=== PATIENT | male | born 1970 | race Caucasian/White ===

== ENCOUNTER 2025-03-14 22:24 | Emergency (ER) | payer BC ==
--- OUTSIDE RECORDS SUMMARY | 2025-03-14 22:31 | XMS REPORT | Continuity of Care Document ---
Author Name Unknown Address [address] [facility] [address] [place] [address] [facility] Address [address] [facility]. [address] [place] [address] Care Team Providers Care [employer]ic Name Role Phone Angela BARRETT, Cruzito Monroy Primary Care Physician MANUELA PARSONS Attending Clinician Unavailable MANUELA PARSONS Attending Clinician Unavailable Manuela Parsons PA-C Attending Clinician + RENE BRODY Attending Clinician UnavailRENE Baker Attending Clinician UnavailRene Baker MD Attending Clinician + [phone] Lucas Patricio MD Attending Clinician + Reen Brody MD Attending Clinician + [phone] Lucas Patricio MD Attending Clinician + EDDIE THOMAS Attending Clinician UnavailEddie Blakely MD Attending Clinician [phone] Justice Mack Attending Clinician + JUSTICE ERWIN Attending Clinician Unavailable Doctor Unassigned, [place] Attending Clinician U JOSE ALBERTO Guillen Attending Clinician Unavail able Jose Alberto Holm MD Attending Clinician [phone] LUCAS PATRICIO Attending Clinician Unavailable ELISEO CARY Attending Clinician Unavailable Nurse, [facility] Attending Clinician Un available Unknown, Attending Attending Clinician Unavailab nila UNKNOWN, ATTENDING Attending Clinician Unavailab NIGHAT Vasquez Attending Clinician Unavailable Nighat Sam MD Attending Clinician Therapy, [facility] Attending Clinician Unavailable Leonid Whalen MD Attending Clinician [phone] LEONID WHALEN Attending Clinician Unavailable JALEN RUFFIN Attending Clinician Unavailable Jalen Ruffin DO Attending Clinician [phone] BRADFORD LANDRUM Attending Clinician UnavailNATHALY Gomez Attending Clinician Unavailab nila Camargo MD, Td Attending Clinician [phone] EDDIE THOMAS Admitting Clinician Unavailab JOSE ALBERTO Pelaez Admitting Clinician Unavail able Payers Payer Name Policy Type Policy Number Effective Date Expirati on Date Source [facility] [id number] 2014 00:00:00 Problems Condition Name Condition Details Condition Category Status Onset Date Resolution Date Last Treatment Date Treating Clinician Comments Source Arthritis of both knees Arthritis of both knees Disease Active 06-04 00:00: 00 [facility] Lumbar disc disease with radiculopa thy Lumbar disc disease with radiculopa thy Disease Active 06-04 00:00: 00 [facility] Left-sided low back pain with left-sided sciatica Left-sided low back pain with left-sided sciatica Disease Active 05-05 00:00: 00 [facility] Left-sided low back pain with left-sided sciatica Left-sided low back pain with left-sided sciatica Disease Active 05-05 00:00: 00 [facility] Epilepsy Epilepsy Disease Active 2014-11 00:00: 00 [facility] Erectile dysfunctio n Erectile dysfunctio n Disease Active 2014-11 00:00: 00 [facility] Allergies, Adverse Reactions, Alerts Allergy Name Allergy Type Status Severity Reaction(s) Onset Date Inactive Date Treating Clinician Comments Source spironol actone Propensi ty to adverse reaction to drug Active 01-09 00:00: 00 [facility] Phenytoi n Sodium Extended Drug Allergy Active Anaphylaxis 2014-11 00:00: 00 Per patient [facility] Carbamaz epine Drug Allergy Active Anaphylaxis 2014-11 00:00: 00 Per patient [facility] PHENYTOI N SODIUM EXTENDED DRUG INGREDI Active Anaphylaxis 2014-11 00:00: 00 [facility] CARBAMAZ EPINE DRUG INGREDI Active Anaphylaxis 2014-11 00:00: 00 [facility] Social History Social Habit Start Date Stop Date Quantity Comments Source History SDOH Alcohol Frequency [facility] History SDOH Alcohol Std [facility] SDOH Alcohol Binge [facility] History of tobacco use Snuff User [facility] Alcoholic beverage intake 2024-11-24 00:00:00 2024-11-24 00:00:00 2 /d [facility] History of Social function 2024-10-12 00:00:00 2024-10-12 00:00:00 [facility] Cigarettes smoked current (pack per day) - Reported 2024-10-12 00:00:00 2024-10-12 00:00:00 [facility] Cigarette pack-years 2024-10-12 00:00:00 2024-10-12 00:00:00 [facility] Tobacco use and exposure 2024-10-12 00:00:00 2024-10-12 00:00:00 User of smokeless tobacco [facility] Alcohol intake 2023-05-01 00:00:00 2023-05-01 00:00:00 2 /d [facility] Exposure to SARS-CoV-2 (event) 2023-03-23 00:00:00 2023-04-02 14:06:00 Not sure [facility] Tobacco Comment 2022-06-04 00:00:00 2022-06-04 00:00:00 1 can daily [facility] Alcohol Comment 2019-02-09 00:00:00 2019-02-09 00:00:00 2 beers daily [facility] Sex assigned at 1970 00:00:00 1970 00:00:00 [facility] Smoking Status Start Date Stop Date Source Ex-smoker 2024-10-12 00:00:00 2024-10-12 00:00:00 [facility] Medications Ordered Medication Name Filled Medication Name Start Date Stop Date Current Medication? Ordering Clinician Indication Dosage Frequency Signature (SIG) Comments Components Source metoprolol tartrate 75 mg tablet - 00:00: 00 Yes 1mg [facility] anastrozole 1 mg tablet - 00:00: 00 Yes 1mg [facility] trazodone 50 mg tablet - 00:00: 00 Yes 1mg [facility] Cialis 20 mg tablet - 00:00: 00 Yes 1mg [facility] Depakote 500 mg tablet,marilin yed release 3- 00:00: 00 Yes 6mg [facility] metoprolol succinate ER 50 mg tablet,exte nded release 24 hr - 00:00: 00 Yes 1mg [facility] diclofenac sodium 75 mg tablet,marilin yed release 3- 00:00: 00 Yes 1mg [facility] Wellbutrin XL 150 mg 24 hr tablet, extended release - 00:00: 00 Yes 1mg [facility] bumetanide 1 mg tablet 3- 00:00: 00 Yes 1mg [facility] omeprazole 20 mg capsule,del ayed release 3- 00:00: 00 Yes 1mg [facility] Lyrica 75 mg capsule 3- 00:00: 00 Yes 1mg [facility] metoprolol succinate ER 25 mg tablet,exte nded release 24 hr 2-19 00:00: 00 Yes mg [facility] sodium hyaluronate (viscosup) (ORTHOVISC) injection 30 mg 11-24 16:45: 00 11-24 15:45 :00 No [id number] 30mg 30 mg, Intra-christi cular, ONCE, 1 dose, On Thu11/24/24 at 1045, Routine [facility] sodium hyaluronate (viscosup) (ORTHOVISC) injection 30 mg 11-17 18:00: 00 11-17 17:01 :00 No [id number] 30mg 30 mg, Intra-christi cular, ONCE, 1 dose, On Thu11/17/24 at 1200, Routine [facility] sodium hyaluronate (viscosup) (ORTHOVISC) injection 30 mg 2023-11 20:45: 00 10-12 19:56 :00 No [id number] 30mg 30 mg, Intra-christi cular, ONCE, 1 dose, On Thu10/12/24 at 1445, Routine [facility] metoprolol succinate XL 25 mg 24 hr tablet 2023-11 00:00: 00 Yes TAKE 1 TABLET BY MOUTH EVERY DAY FOR 30 DAYS [facility] sodium hyaluronate (viscosup) (ORTHOVISC) injection 30 mg 03-10 16:15: 00 03-10 15:17 :00 No [id number] 30mg 30 mg, Intra-chrsiti cular, ONCE, 1 dose, On Ashley 03/10/24 at 1115, Routine [facility] sodium hyaluronate (viscosup) (ORTHOVISC) injection 30 mg 03-03 18:45: 00 03-03 17:57 :00 No 30mg 30 mg, Intra-christi cular, ONCE, 1 dose, On Thu03/03/24 at 1345, Routine [facility] sodium hyaluronate (viscosup) (ORTHOVISC) injection 30 mg 02-24 16:30: 00 02-24 15:40 :00 No 30mg 30 mg, Intra-christi cular, ONCE, 1 dose, On Thu02/25/24 at 1130, Routine [facility] lisinopriL 20 mg tablet 12-28 00:00: 00 Yes [id number] TAKE 1 TABLET BY MOUTH EVERY MORNING NEED APPOINTMEN T [facility] lisinopriL 20 mg tablet 11-23 00:00: 00 Yes [id number] 20mg TAKE ONE TABLET BY MOUTH EVERY MORNING [facility] aspirin tablet 325 mg 05-01 14:26: 00 05-01 14:33 :00 No 325mg 325 mg, Oral, ONCE, 1 dose, On Thu05/01/23 at 0930, EVA [facility] dextroamphe tamine-amph etamine (ADDERALL) 10 mg tablet 05-01 09:46: 43 05-01 00:00 :00 No 10mg Take 10 mg by mouth 2 (two) times daily. Indication s: take 1/2 tab PO BID [facility] sodium hyaluronate (viscosup) (ORTHOVISC) injection 30 mg 04-09 20:15: 00 04-09 19:31 :00 No [id number] 9100 30mg [facility] sodium hyaluronate (viscosup) (ORTHOVISC) injection 30 mg 04-02 20:30: 00 04-02 19:42 :00 No [id number] 9109 30mg [facility] sodium hyaluronate (viscosup) (ORTHOVISC) injection 15 mg 03-26 19:30: 00 03-26 18:42 :00 No [id number] 15mg [facility] traZODone 50 mg tablet 03-25 00:00: 00 Yes at bedtime. [facility] levalbutero l (XOPENEX) nebulizer solution 1.25 mg 03-21 13:00: 00 Yes 1.25mg 1.25 mg, Inhalation , TID, First dose on 03/21/23 at 0800, Until Discontinu ed, Routine [facility] furosemide (LASIX) injection 40 mg 03-21 08:45: 00 03-21 09:06 :00 No 40mg 40 mg, IV Push, ONCE, 1 dose, On 03/21/23 at 0345, [facility] methylpredn isolone sod succ (SOLU-MEDRO L) injection 125 mg 03-21 08:45: 00 03-21 09:06 :00 No 125mg 125 mg, IV Piggyback, ONCE, 1 dose, On 03/21/23 at 0345, STAT [facility] divalproex ER (DEPAKOTE ER) 500 mg 24 hr tablet 03-21 05:54: 04 Yes 500mg Take 500 mg by mouth 2 (two) times daily. Indication s: takes 3 tab in morning and 2 in afternoon [facility] dextroamphe tamine-amph etamine (ADDERALL) 10 mg tablet 03-21 05:54: 04 Yes 10mg Take 10 mg by mouth 2 (two) times daily. Indication s: take 1/2 tab PO BID [facility] albuterol 90 mcg/actuati on inhaler 03-21 00:00: 00 Yes [id number] 2{puff} Inhale 2 Puffs every 4 (four) hours as needed for Wheezing or Shortness of Breath. [facility] azithromyci n 250 mg tablet 03-21 00:00: 00 03-27 04:59 :00 No [id number] 250mg Take 1 tablet by mouth SEE-INSTRU CTIONS for 5 days. Take 500 mg day 1, then 250 mg days 2 to 5. [facility] predniSONE 20 mg tablet 03-21 00:00: 00 03-24 04:59 :00 No [id number] 20mg Take 1 tablet by mouth in the morning and 1 tablet in the evening. Do all this for 2 days. [facility] dextroamphe tamine-amph etamine 30 mg tablet 03-18 00:00: 00 Yes 30mg Take 1 tablet by mouth in the morning and 1 tablet in the evening. [facility] cloNIDine 0.1 mg tablet 03-18 00:00: 00 Yes [facility] lisinopriL 20 mg tablet 4-20 00:00: 00 11-23 00:00 :00 No [id number] 20mg Take 1 tablet by mouth in the morning. [facility] doxycycline hyclate 100 mg tablet 8-22 00:00: 00 07-08 04:59 :00 No [id number] 100mg Take 1 tablet by mouth in the morning and 1 tablet in the evening. Do all this for 7 days. [facility] XCOPRI 50 mg Tab 7-20 00:00: 00 Yes [facility] DICLOFENAC 75 mg EC tablet 3-24 00:00: 00 06-04 00:00 :00 No [id number] TAKE ONE TABLET BY MOUTH TWICE A DAY WITH MEALS FOR 30 DAYS [facility] chlorphenir amine 4 mg tablet 01-14 00:00: 00 Yes [id number] 4mg Take 1 tablet by mouth every 6 (six) hours as needed for Allergies or Runny nose. [facility] calcium/mag nesium/zinc (CALCIUM-MA GNESUIUM-ZI NC) 333-133-5 mg Tab 01-14 00:00: 00 Yes [id number] 1{each} Take 1 Each by mouth daily. [facility] calcium/mag nesium/zinc (CALCIUM-MA GNESUIUM-ZI NC) 333-133-5 mg Tab 01-14 00:00: 00 Yes [id number] 1{each} Take 1 Each by mouth daily. [facility] benzonatate 100 mg capsule 01-14 00:00: 00 06-04 00:00 :00 No [id number] 100mg Take 1 capsule by mouth 3 (three) times daily as needed for Cough. [facility] nirmatrelvi r-ritonavir (PAXLOVID, EUA,) 300 mg (150 mg x 2)-100 mg tablet 08 00:00: 00 06-04 00:00 :00 No [id number] 3{tbl} Take 3 tablets by mouth 2 (two) times daily. [facility] DICLOFENAC 75 mg EC tablet 2020-11 2-14 00:00: 00 06-04 00:00 :00 No [id number] TAKE ONE TABLET BY MOUTH TWICE A DAY WITH MEALS FOR 30 DAYS [facility] Cane Yudy 4 00:00: 00 Yes [id number] Use as directed [facility] Cane Yudy 02-07 00:00: 00 Yes [id number] Use as directed [facility] diclofenac 75 mg EC tablet 1 00:00: 00 06-04 00:00 :00 No 75mg Take 1 tablet by mouth 2 (two) times daily with meals. [facility] diclofenac 75 mg EC tablet 8- 00:00: 00 06-04 00:00 :00 No [id number] 75mg Take 1 tablet by mouth 2 (two) times daily with meals. [facility] diclofenac 75 mg EC tablet 306 00:00: 00 Yes 75mg Take 1 tablet by mouth 2 (two) times daily with meals. [facility] methylPREDN ISolone 4 mg tablets 05-25 00:00: 00 06-04 00:00 :00 No [id number] Take by mouth SEE-INSTRU CTIONS. follow package directions [facility] dextroamphe tamine-amph etamine (ADDERALL) 10 mg tablet 05-20 13:13: 01 Yes 10mg Take 10 mg by mouth 2 (two) times daily. Indication s: take 1/2 tab PO BID [facility] divalproex ER (DEPAKOTE ER) 500 mg 24 hr tablet 05-20 13:13: 01 Yes 500mg Take 500 mg by mouth 2 (two) times daily. Indication s: takes 3 tab in morning and 2 in afternoon [facility] tadalafil 20 mg tablet 02-09 00:00: 00 Yes [id number] 20mg Take 1 tablet by mouth as needed for Erectile dysfunctio n. [facility] Immunizations Ordered Immunization Name Filled Immunization Name Date Status Comments Source Sotrovimab 2024-03-10 10:45:00 Completed [facility] TDAP 2024-03-10 10:45:00 Completed [facility] Sotrovimab 2024-03-03 13:00:00 Completed [facility] TDAP 2024-03-03 13:00:00 Completed [facility] Sotrovimab 2024-02-25 10:30:00 Completed [facility] TDAP 2024-02-25 10:30:00 Completed [facility] Sotrovimab 2024-01-11 00:00:00 Completed [facility] TDAP 2024-01-11 00:00:00 Completed [facility] Sotrovimab 2023-12-27 00:00:00 Completed [facility] TDAP 2023-12-27 00:00:00 Completed [facility] Sotrovimab 2023-11-22 00:00:00 Completed [facility] TDAP 2023-11-22 00:00:00 Completed [facility] TDAP 2022-03-13 00:00:00 Completed [facility] TDAP 2022-03-13 00:00:00 Completed [facility] TDAP 2022-03-13 00:00:00 Completed [facility] TDAP 2022-03-13 00:00:00 Completed [facility] TDAP 2022-03-13 00:00:00 Completed [facility] TDAP 2022-03-13 00:00:00 Completed [facility] TDAP 2022-03-13 00:00:00 Completed [facility] TDAP 2022-03-13 00:00:00 Completed [facility] TDAP 2022-03-13 00:00:00 Completed [facility] Sotrovimab 2022-01-16 00:00:00 Completed [facility] Sotrovimab 2022-01-16 00:00:00 Completed [facility] Sotrovimab 2022-01-16 00:00:00 Completed [facility] Sotrovimab 2022-01-16 00:00:00 Completed [facility] Sotrovimab 2022-01-16 00:00:00 Completed [facility] Sotrovimab 2022-01-16 00:00:00 Completed [facility] Sotrovimab 2022-01-16 00:00:00 Completed [facility] Sotrovimab 2022-01-16 00:00:00 Completed [facility] Sotrovimab 2022-01-16 00:00:00 Completed [facility] Sotrovimab 2022-01-16 00:00:00 Completed [facility] Sotroviscb 2022-01-16 00:00:00 Completed [facility] Sotrovimab 2022-01-16 00:00:00 Completed [facility] Sotrovimab 2022-01-16 00:00:00 Completed [facility] Sotrovimab 2022-01-16 00:00:00 Completed [facility] Sotrovimab 2022-01-16 00:00:00 Completed [facility] Vital Signs Vital Name Observation Time Observation Value Comments S ource Systolic blood pressure 2024-11-24 15:26:00 138 mm[Hg] [facility] Diastolic blood pressure 2024-11-24 15:26:00 88 mm[Hg] [facility] Heart rate 2024-11-24 15:26:00 107 /min [facility] Body height 2024-11-24 15:26:00 177.8 cm [facility] Body weight 2024-11-24 15:26:00 127.914 kg [facility] BMI 2024-11-24 15:26:00 40.46 kg/m2 [facility] Oxygen saturation in Arterial blood by Pulse oximetry 2024-11-24 15:26:00 94 /min [facility] Systolic blood pressure 2024-11-17 16:32:00 129 mm[Hg] [facility] Diastolic blood pressure 2024-11-17 16:32:00 87 mm[Hg] [facility] Heart rate 2024-11-17 16:32:00 94 /min [facility] Respiratory rate 2024-11-17 16:32:00 18 /min [facility] Body height 2024-11-17 16:32:00 177.8 cm [facility] Body weight 2024-11-17 16:32:00 130.182 kg [facility] BMI 2024-11-17 16:32:00 41.18 kg/m2 [facility] Oxygen saturation in Arterial blood by Pulse oximetry 2024-11-17 16:32:00 96 /min [facility] Systolic blood pressure 2024-10-12 19:55:00 124 mm[Hg] [facility] Diastolic blood pressure 2024-10-12 19:55:00 81 mm[Hg] [facility] Heart rate 2024-10-12 19:55:00 78 /min [facility] Body height 2024-10-12 19:55:00 177.8 cm [facility] Body weight 2024-10-12 19:55:00 128.413 kg [facility] BMI 2024-10-12 19:55:00 40.62 kg/m2 [facility] Oxygen saturation in Arterial blood by Pulse oximetry 2024-10-12 19:55:00 95 /min [facility] Systolic blood pressure 2024-03-10 15:16:00 149 mm[Hg] [facility] Diastolic blood pressure 2024-03-10 15:16:00 93 mm[Hg] [facility] Heart rate 2024-03-10 15:16:00 101 /min [facility] Body height 2024-03-10 15:16:00 177.8 cm [facility] Body weight 2024-03-10 15:16:00 133.811 kg [facility] BMI 2024-03-10 15:16:00 42.33 kg/m2 [facility] Oxygen saturation in Arterial blood by Pulse oximetry 2024-03-10 15:16:00 94 /min [facility] Body height 2024-03-03 17:47:00 177.8 cm [facility] Body weight 2024-03-03 17:47:00 132.949 kg [facility] BMI 2024-03-03 17:47:00 42.06 kg/m2 [facility] Systolic blood pressure 2024-02-25 15:34:00 147 mm[Hg] [facility] Diastolic blood pressure 2024-02-25 15:34:00 89 mm[Hg] [facility] Heart rate 2024-02-25 15:34:00 88 /min Un[facility] Body height 2024-02-25 15:34:00 177.8 cm [facility] Body weight 2024-02-25 15:34:00 131.679 kg [facility] BMI 2024-02-25 15:34:00 41.65 kg/m2 [facility] Oxygen saturation in Arterial blood by Pulse oximetry 2024-02-25 15:34:00 94 /min [facility] Systolic blood pressure 2023-05-01 19:00:00 101 mm[Hg] [facility] Diastolic blood pressure 2023-05-01 19:00:00 68 mm[Hg] [facility] Heart rate 2023-05-01 19:00:00 67 /min [facility] Respiratory rate 2023-05-01 19:00:00 13 /min [facility] Oxygen saturation in Arterial blood by Pulse oximetry 2023-05-01 19:00:00 92 /min [facility] Body temperature 2023-05-01 14:20:00 36.94 Mare [facility] Body height 2023-05-01 14:20:00 177.8 cm [facility] Body weight 2023-05-01 14:20:00 131.543 kg [facility] BMI 2023-05-01 14:20:00 41.61 kg/m2 [facility] Body height 2023-04-09 19:27:00 177.8 cm [facility] Body weight 2023-04-09 19:27:00 133.358 kg [facility] BMI 2023-04-09 19:27:00 42.18 kg/m2 [facility] Body height 2023-04-02 19:38:00 177.8 cm [facility] Body weight 2023-04-02 19:38:00 133.403 kg [facility] BMI 2023-04-02 19:38:00 42.20 kg/m2 [facility] Systolic blood pressure 2023-03-26 18:24:00 134 mm[Hg] [facility] Diastolic blood pressure 2023-03-26 18:24:00 87 mm[Hg] [facility] Heart rate 2023-03-26 18:24:00 72 /min Un[facility] Body height 2023-03-26 18:24:00 177.8 cm [facility] Body weight 2023-03-26 18:24:00 134.129 kg [facility] BMI 2023-03-26 18:24:00 42.43 kg/m2 [facility] Systolic blood pressure 2023-03-21 11:00:00 132 mm[Hg] [facility] Diastolic blood pressure 2023-03-21 11:00:00 82 mm[Hg] [facility] Heart rate 2023-03-21 11:00:00 86 /min [facility] Respiratory rate 2023-03-21 11:00:00 18 /min [facility] Oxygen saturation in Arterial blood by Pulse oximetry 2023-03-21 11:00:00 95 /min [facility] Body temperature 2023-03-21 08:25:00 37.39 Mare [facility] Body height 2023-03-21 08:25:00 177.8 cm [facility] Body weight 2023-03-21 08:25:00 138.347 kg [facility] BMI 2023-03-21 08:25:00 43.76 kg/m2 [facility] Systolic blood pressure 2023-02-26 17:58:00 144 mm[Hg] [facility] Diastolic blood pressure 2023-02-26 17:58:00 87 mm[Hg] [facility] Heart rate 2023-02-26 17:57:00 102 /min Un[facility] Body height 2023-02-26 17:57:00 177.8 cm [facility] Body weight 2023-02-26 17:57:00 135.671 kg [facility] BMI 2023-02-26 17:57:00 42.92 kg/m2 [facility] Oxygen saturation in Arterial blood by Pulse oximetry 2023-02-26 17:57:00 95 /min [facility] Systolic blood pressure 2023-02-26 14:01:00 124 mm[Hg] [facility] Diastolic blood pressure 2023-02-26 14:01:00 86 mm[Hg] [facility] Heart rate 2023-02-26 14:01:00 87 /min [facility] Body height 2023-02-26 14:01:00 177.8 cm [facility] Body weight 2023-02-26 14:01:00 135.217 kg [facility] BMI 2023-02-26 14:01:00 42.77 kg/m2 [facility] Systolic blood pressure 2022-07-09 20:03:00 137 mm[Hg] [facility] Diastolic blood pressure 2022-07-09 20:03:00 91 mm[Hg] [facility] Heart rate 2022-07-09 20:01:00 88 /min [facility] Body temperature 2022-07-09 20:01:00 37.06 Mare [facility] Respiratory rate 2022-07-09 20:01:00 18 /min [facility] Body height 2022-07-09 20:01:00 177.8 cm [facility] Body weight 2022-07-09 20:01:00 133.811 kg [facility] BMI 2022-07-09 20:01:00 42.33 kg/m2 [facility] Oxygen saturation in Arterial blood by Pulse oximetry 2022-07-09 20:01:00 96 /min [facility] Systolic blood pressure 2022-06-30 18:53:00 128 mm[Hg] [facility] Diastolic blood pressure 2022-06-30 18:53:00 88 mm[Hg] [facility] Heart rate 2022-06-30 18:53:00 97 /min [facility] Body temperature 2022-06-30 18:53:00 36.5 Mare [facility] Respiratory rate 2022-06-30 18:53:00 19 /min [facility] Body height 2022-06-30 18:53:00 177.8 cm [facility] Body weight 2022-06-30 18:53:00 133.403 kg [facility] BMI 2022-06-30 18:53:00 42.20 kg/m2 [facility] Oxygen saturation in Arterial blood by Pulse oximetry 2022-06-30 18:53:00 96 /min [facility] BP Systolic 2025-02-06 14:54:00 116 mm[Hg] Step hen F Carlos A BP Diastolic 2025-02-06 14:54:00 79 mm[Hg] Steven phen F Carlos A Weight Measured 2025-02-06 14:54:00 288.20 pounds Pancho F Carlos A Height Measured 2025-02-06 14:54:00 70.00 inches Pancho F Carlos A Body Temperature 2025-02-06 14:54:00 97.30 degrees Pancho F Carlos A Heart Rate 2025-02-06 14:54:00 91.00 /min Porsha en F Carlos A Respiratory Rate 2025-02-06 14:54:00 Pancho F Carlos A BP Systolic 2025-02-06 14:45:00 116 mm[Hg] Step hen F Carlos A BP Diastolic 2025-02-06 14:45:00 79 mm[Hg] Steven phen F Carlos A Weight Measured 2025-02-06 14:45:00 288.20 pounds Pancho F Carlos A Height Measured 2025-02-06 14:45:00 70.00 inches Pancho F Carlos A Body Temperature 2025-02-06 14:45:00 97.30 degrees Pancho F Carlos A Heart Rate 2025-02-06 14:45:00 89.00 /min Porsha en F Carlos A Respiratory Rate 2025-02-06 14:45:00 Pancho F Carlos A Heart Rate 2025-01-09 15:42:00 102.00 /min Afshin Strauss Respiratory Rate 2025-01-09 15:42:00 Pancho Strauss BP Systolic 2025-01-09 15:42:00 116 mm[Hg] Afshin Strauss BP Diastolic 2025-01-09 15:42:00 71 mm[Hg] Steven Strauss Weight Measured 2025-01-09 15:42:00 294.20 pounds Pancho Strauss Height Measured 2025-01-09 15:42:00 70.00 inches Pancho Strauss Body Temperature 2025-01-09 15:42:00 97.90 degrees Pancoh Strauss Procedures Procedure Date / Time Performed Performing Clinician Source AC ABG + LACTIC ACID 2023-05-01 18:38:00 Eddie Thomas [facility] COVID-19 (ID NOW RAPID TESTING) 2023-05-01 18:30:00 Eddie Thomas [facility] TROPONIN I 2023-05-01 16:47:[address] [facility] XR CHEST 1 VW 2023-05-01 14:54:00 Eddie Thomas [facility] TROPONIN I 2023-05-01 14:33:[address] [facility] COMP. METABOLIC PANEL (00092) 2023-05-01 14:33:00 Eddie Thomas [facility] CBC WITH DIFF 2023-05-01 14:33:00 Eddie Thomas [facility] PROTHROMBIN TIME / INR 2023-05-01 14:33:00 Eddie Thomas [facility] ACTIVATED PARTIAL THRMPLAS YO 2023-05-01 14:33:00 Eddie Thomas [facility] N-TERMINAL PRO-BNP 2023-05-01 14:33:00 Lizzie Thomas [facility] CONSENT/REFUSAL FOR DIAGNOSIS AND TREATMENT 2023-05-01 14:15:02 Doctor Unassigned, [place] [facility] EXTERNAL PROVIDER RECORDS 2023-04-03 05:01:00 Doctor Unassigned, [place] [facility] EKG-12 LEAD 2023-03-21 11:02:06 Jose Alberto Holm [facility] XR CHEST 2 VW 2023-03-21 09:09:01 Jose Alberto Holm [facility] TROPONIN I 2023-03-21 08:53:00 Jose Alberto Holm [facility] BASIC METABOLIC PANEL (NA, K, CL, CO2, GLUCOSE, BUN, CREATININE, CA) 2023-03-21 08:53:00 Jose Alberto Holm [facility] RAPID STREP SCREEN FOR GROUP A 2023-03-21 08:53:00 Jose Alberto Holm [facility] N-TERMINAL PRO-BNP 2023-03-21 08:53:00 Jose Alberto Holm [facility] COVID-19 (ID NOW RAPID TESTING) 2023-03-21 08:53:00 Jose Alberto Holm [facility] NOTICE OF PRIVACY PRACTICES 2023-03-21 08:18:07 Doctor Unassigned, [place] [facility] CONSENT/REFUSAL FOR DIAGNOSIS AND TREATMENT 2023-03-21 08:17:38 Doctor Unassigned, [place] [facility] AUTHORIZATION FOR RELEASE OF PHI 2022-05-15 05:01:00 Doctor Unassigned, [place] [facility] Encounters Start Date/Time End Date/Time Encounter Type Admission Type Attending [facility] Care Facility Care Department Encounter ID Source 2023-10-12 14:04:00 Outpatient [facility] [id number] [facility] 2022-02-18 09:05:02 Outpatient [facility] [id number] [facility] 2025-02-06 14:44:07 2025-02-06 14:44:07 Outpatient [facility] [id number] Pancho F Carlos A 2025-02-06 00:00:00 2025-02-06 00:00:00 Outpatient Visit SFA SFA [id number] Pancho Strauss 2025-01-09 15:42:17 2025-01-09 15:42:17 Outpatient SFA SFA [id number] Pancho Strauss 2025-01-09 00:00:00 2025-01-09 00:00:00 Outpatient Visit [facility] [id number] [facility] Strauss 2024-11-24 09:30:00 2024-11-24 09:43:30 Outpatient R MANUELA PARSONS SELENA [facility] [id number] [facility] 2024-11-24 09:30:00 2024-11-24 09:43:30 Office Visit Jaqueline [facility] 1.2.840.114 350.1.13.10 4.2.7.2.686 [id number] [facility] 2024-11-17 10:30:00 2024-11-17 10:55:52 Outpatient R MANUELA PARSONS SELENA [facility] [id number] [facility] 2024-11-17 10:30:00 2024-11-17 10:55:52 [facility]Yefri [facility] .2.840.114 350.1.13.10 4.2.7.2.686 [id number] [facility] 2024-11-08 10:00:00 2024-11-08 10:00:00 Outpatient R MANUELA PARSONS SELENA [facility] [id number] [facility] 2024-10-19 14:30:00 2024-10-19 14:30:00 Outpatient R MANUELA PARSONS SELENA [facility] [id number] [facility] 2024-10-12 14:00:00 2024-10-12 14:11:55 Outpatient R RENE BRODY CRAIG [facility] [id number] [facility] 2024-10-12 14:00:00 2024-10-12 14:11:55 Office Visit Rene Bro[facility]Yefri [facility] 1.2840.114 350.1.13.10 4.2.7.2.686 [id number] [facility] 2024-10-11 00:00:00 2024-10-11 10:15:58 Telephone Lucas Patricio [facility] 1.84.114 350.1.13.10 4.2.7.2.686 [id number] [facility] 2024-09-28 00:00:00 2024-09-29 13:33:59 Telephone Rene Brody [facility] 1.840.114 350.1.13.10 4.2.7.2.686 [id number] [facility] 2024-09-22 11:15:00 2024-09-22 11:15:00 Outpatient R RENE BRODY CRAIG [facility] [id number] [facility] 2024-09-21 00:00:00 2024-09-21 15:41:04 [facility] 1.840.114 350.1.13.10 4.2.7.2.686 [id number] [facility] 2024-08-30 09:45:00 2024-08-30 09:45:00 Outpatient R RENE BRODY CRAIG [facility] [id number] [facility] 2024-08-23 00:00:00 2024-08-24 09:44:17 Telephone Rene Brody [facility] 1.2840.114 350.1.13.10 4.2.7.2.686 [id number] [facility] 2024-03-10 10:45:00 2024-03-10 13:36:59 Outpatient R RENE BRODY CRAIG [facility] [id number] [facility] 2024-03-10 10:45:00 2024-03-10 13:36:59 Office [facility] 1.840.114 350.1.13.10 4.2.7.2.686 [id number] [facility] 2024-03-03 13:00:00 2024-03-03 13:10:23 Outpatient R RENE BRODY CRAIG [facility] [id number] [facility] 2024-03-03 13:00:00 2024-03-03 13:10:23 Office Visit Rene Brody [facility] 1.84.114 350.1.13.10 4.2.7.2.686 [id number] [facility] 2024-02-25 10:30:00 2024-02-25 11:52:42 Outpatient R RENE BRODY CRAIG [facility] [id number] [facility] 2024-02-25 10:30:00 2024-02-25 11:52:42 Office Visit [facility] 1.84.114 350.1.13.10 4.2.7.2.686 [id number] [facility] 2024-01-11 00:00:00 2024-01-11 00:00:00 Lucas Morgan [facility] 1.84.114 350.1.13.10 4.2.7.2.686 [id number] [facility] 2023-12-27 00:00:00 2023-12-27 00:00:00 Reftravis Patricio [facility]Yefri [facility] OFFICE BUILDING 1.84.114 350.1.13.10 4.2.7.2.686 [id number] [facility] 2023-11-22 00:00:00 2023-11-22 00:00:00 Refill Aristeo [facility] 1.114 350.1.13.10 4.2.7.2.686 [id number] [id number] [facility] 2023-05-01 09:21:00 2023-05-01 15:00:00 Emergency [facility] [id number] [facility] 2023-05-01 09:21:00 2023-05-01 15:00:00 Emergency [facility] 1..114 350.1.13.10 4.2.7.2.686 [id number] [facility] 2023-04-09 14:30:00 2023-04-09 14:45:00 Office Visit Justice Erwin [facility] 1.84.114 350.1.13.10 4.2.7.2.686 [id number] [facility] 2023-04-09 14:30:00 2023-04-09 14:30:00 Outpatient R JUSTICE ERWIN [facility] [id number] [facility] 2023-04-03 00:00:00 2023-04-03 00:00:00 Orders Only Doctor Unassigned, [place] [facility] 1..114 350.1.13.10 4.2.7.2.686 [id number] [facility] 2023-04-02 14:30:00 2023-04-02 16:40:05 Outpatient R YAIMA JUSTICE [facility] [id number] [facility] 2023-04-02 14:30:00 2023-04-02 16:40:05 [facility] 1..840.114 350.1.13.10 4.2.7.2.686 [id number] [facility] 2023-03-26 13:15:00 2023-03-26 13:51:42 Outpatient R YAIMA JUSTICE [facility] [id number] [facility] 2023-03-26 13:15:00 2023-03-26 13:51:42 Office [facility] 1..840.114 350.1.13.10 4.2.7.2.686 [id number] [facility] 2023-03-21 03:31:00 2023-03-21 06:35:00 Emergency X JOSE ALBERTO HOLM [facility] [id number] [facility] 2023-03-21 03:31:00 2023-03-21 06:35:00 Emergency Jose Alberto Holm [facility] 1..840.114 350.1.13.10 4.2.7.2.686 [id number] [facility] 2023-03-18 00:00:00 2023-03-18 00:00:00 Telephone [facility] 1..840.114 350.1.13.10 4.2.7.2.686 [id number] [facility] 2023-02-26 13:45:00 2023-02-26 14:00:00 Office Visit Lucas Patricio [facility] 1..840.114 350.1.13.10 4.2.7.2.686 [id number] [facility] 2023-02-26 08:45:00 2023-02-26 09:37:02 Outpatient R JUSTICE ERWIN [facility] [id number] [facility] 2023-02-26 08:45:00 2023-02-26 09:00:00 Office Visit Justice Erwin [facility] 1..840.114 350.1.13.10 4.2.7.2.686 [id number] [facility] 2022-07-09 15:00:00 2022-07-09 15:29:13 Outpatient R ELISEO CARY [facility] [id number] [facility] 2022-07-09 15:00:00 2022-07-09 15:20:00 Nurse Visit Nurse, Flako [facility] Unknown, Attending [facility] 1..840.114 350.1.13.10 4.2.7.2.686 [id number] [facility] 2022-07-09 15:00:00 2022-07-09 15:00:00 Outpatient R UNKNOWN, ATTENDING [facility] [id number] [facility] 2022-06-30 14:00:00 2022-06-30 14:31:57 Outpatient R FLACO NIGHAT [facility] [id number] [facility] 2022-06-30 14:00:00 2022-06-30 14:31:57 Urgent Care Flaco Nig[facility] 1..840.114 350.1.13.10 4.2.7.2.686 [id number] [facility] 2022-06-23 00:00:00 2022-06-23 00:00:00 Telephone Lucas Patricio [facility] 1.84.114 350.1.13.10 4.2.7.2.686 [id number] [facility] 2022-06-04 09:00:00 2022-06-04 09:29:54 Office Visit Lucas Patricio [facility] 1.84114 350.1.13.10 4.2.7.2.686 [id number] [facility] 2022-06-04 09:00:00 2022-06-04 09:29:54 Outpatient R LUCAS PATRICIO [facility] [id number] [facility] 2022-06-04 09:00:00 2022-06-04 09:00:00 Outpatient R LUCAS PATRICIO [facility] [id number] [facility] 2022-06-04 00:00:00 2022-06-04 00:00:00 Telephone [facility] 1.84114 350.1.13.10 4.2.7.2.686 [id number] [facility] 2022-05-15 00:00:00 2022-05-15 00:00:00 Telephone Lucas Patricio [facility] 1.84.114 350.1.13.10 4.2.7.2.686 [id number] [facility] 2022-05-15 00:00:00 2022-05-15 00:00:00 Telephone Lucas Patricio [facility] 1.84.114 350.1.13.10 4.2.7.2.686 [id number] [facility] 2022-05-15 00:00:00 2022-05-15 00:00:00 Orders Only Doctor Unassigned, [place] [facility] 1.2.840.114 350.1.13.10 4.2.7.2.686 [id number] [facility] 2022-02-18 00:00:00 2022-02-18 00:00:00 Orders Only Doctor Unassigned, [place] [facility] 1.2840.114 350.1.13.10 4.2.7.2.686 [id number] [facility] 2022-01-30 00:00:00 2022-01-30 00:00:00 Justice Dia [facility] 1.2840.114 350.1.13.10 4.2.7.2.686 [id number] [facility] 2022-01-16 16:00:00 2022-01-16 17:00:00 Nurse Visit Therapy, Adc Covid Leonid Kat [facility] 1.2840.114 350.1.13.10 4.2.7.2.686 [id number] [facility] 2022-01-16 16:00:00 2022-01-16 16:00:00 Outpatient LEONID ELDRIDGE [facility] [id number] [facility] 2022-01-14 12:54:00 2022-01-14 18:42:00 Emergency X JALEN RUFFIN [facility] ERT [id number] [facility] 2022-01-14 12:54:00 2022-01-14 18:42:00 Emergency Jalen Ruffin [facility] 1.2840.114 350.1.13.10 4.2.7.2.686 [id number] [facility] 2022-01-14 12:00:00 2022-01-14 12:22:36 Outpatient R BRADFORD LANDRUM [facility] [id number] [facility] 2022-01-12 20:00:00 2022-01-12 20:34:36 Outpatient R NATHALY MARCANO [facility] [id number] [facility] 2021-10-16 00:00:00 2021-10-16 00:00:00 Justice Dia [facility] SPECIAL[facility] 1.2840.114 350.1.13.10 4.2.7.2.686 [id number] [facility] 2021-10-08 00:00:00 2021-10-08 00:00:00 Orders Only Doctor Unassigned, [place] [facility] 1.2840.114 350.1.13.10 4.2.7.2.686 [id number] [facility] 2021-09-24 00:00:00 2021-09-24 00:00:00 [facility] 1.2.84.114 350.1.13.10 4.2.7.2.686 [id number] [facility] 2021-09-24 00:00:00 2021-09-24 00:00:00 Telephone Aristeo [facility] 1.2840.114 350.1.13.10 4.2.7.2.686 [id number] [facility] 2021-09-24 00:00:00 2021-09-24 00:00:00 Orders Only Doctor Unassigned, [place] [facility] 1.2840.114 350.1.13.10 4.2.7.2.686 [id number] [facility] 2021-08-12 15:13:23 2021-08-12 15:43:37 Office [facility] Medical Office Building 1.114 350.1.13.10 4.2.7.2.686 [id number] [facility] 2021-08-12 15:15:00 2021-08-12 15:15:00 Outpatient R RENE BRODY [facility] [id number] [facility] 2021-08-05 15:16:14 2021-08-05 16:14:11 Office Visit Justice Erwin [facility] Jesus?[facility] Medical Office Building 1.114 350.1.13.10 4.2.7.2.686 [id number] [facility] 2021-08-05 15:15:00 2021-08-05 15:15:00 Outpatient R RENE BRODY [facility] [id number] [facility] 2021-07-29 15:19:40 2021-07-29 15:51:55 Office Visit [facility] Medical Office Building 1.114 350.1.13.10 4.2.7.2.686 [id number] [facility] 2021-07-29 15:19:40 2021-07-29 15:51:55 Office Visit Justice [facility]win [facility] Medical Office Building 1.114 350.1.13.10 4.2.7.2.686 [id number] [facility] 2021-07-29 15:19:40 2021-07-29 15:51:55 Office Visit Justice [facility] Medical Office Building 1.114 350.1.13.10 4.2.7.2.686 [id number] [facility] 2021-07-29 15:15:00 2021-07-29 15:15:00 Outpatient R RENE BRODY [facility] [id number] [facility] 2021-07-25 10:19:13 2021-07-25 10:45:36 Office Visit BrodyRene [facility] Medical Office Building 1.2.840.114 350.1.13.10 4.2.7.2.686 [id number] [facility] 2021-07-25 10:30:00 2021-07-25 10:30:00 Outpatient R RENE BRODY [facility] [id number] [facility] 2021-07-19 10:20:38 2021-07-19 10:43:06 Office [facility] Medical Office Building 1.2.840.114 350.1.13.10 4.2.7.2.686 [id number] [facility] 2021-07-19 10:30:00 2021-07-19 10:30:00 Outpatient R RENE BRODY [facility] [id number] [facility] 2021-07-11 10:30:00 2021-07-11 10:30:00 Outpatient R MARY GRACE RENE [facility] [id number] [facility] 2021-07-11 09:52:25 2021-07-11 10:12:32 Office Visit Justice Erwin [facility] Medical Office Building 1.2.840.114 350.1.13.10 4.2.7.2.686 [id number] [facility] 2021-07-05 00:00:00 2021-07-05 00:00:00 Orders Only Doctor Unassigned, [place] [facility] 1.2.840.114 350.1.13.10 4.2.7.2.686 [id number] [facility] 2021-07-01 00:00:00 2021-07-01 00:00:00 Telephone Gavino Brodyig Talisha [facility] 1.2.840.114 350.1.13.10 4.2.7.2.686 [id number] [facility] 2021-06-20 07:39:53 2021-06-20 23:59:00 Hospital Encounter Rene Brody [facility] 1.2.840.114 350.1.13.10 4.2.7.2.686 [id number] [facility] 2021-06-20 09:00:00 2021-06-20 09:00:00 Outpatient R RENE BRODY [facility] [place] [id number] [facility] 2021-06-20 08:21:40 2021-06-20 08:53:09 Office Visit Rene Brody [facility] 1.2.840.114 350.1.13.10 4.2.7.2.686 [id number] [facility] 2021-06-19 00:00:00 2021-06-19 00:00:00 Telephone Rene Brody [facility] 1.2.840.114 350.1.13.10 4.2.7.2.686 [id number] [facility] 2021-06-12 00:00:00 2021-06-12 00:00:00 Telephone Rene Brody [facility] 1.2.840.114 350.1.13.10 4.2.7.2.686 [id number] [facility] 2021-05-09 09:15:00 2021-05-09 09:15:00 Outpatient R RENE BRODY [facility] [place] [id number] [facility] 2021-02-07 08:00:00 2021-02-07 23:59:00 Hospital Encounter Mary Grace Rene Talisha [facility] 1.2.840.114 350.1.13.10 4.2.7.2.686 [id number] [facility] 2021-02-07 08:28:12 2021-02-07 08:43:12 Office Visit [facility] 1.2.840.114 350.1.13.10 4.2.7.2.686 [id number] [facility] 2021-02-07 08:30:00 2021-02-07 08:30:00 Outpatient R JUSTICE ERWIN [facility] [place] [id number] [facility] 2021-02-07 00:00:00 2021-02-07 00:00:00 Orders Only Doctor Unassigned, [place] [facility] 1.2.840.114 350.1.13.10 4.2.7.2.686 [id number] [id number] [facility] 2021-02-06 00:00:00 2021-02-06 00:00:00 Telephone Rene Brody Talisha [facility] 1.2.840.114 350.1.13.10 4.2.7.2.686 [id number] [facility] 2021-02-05 00:00:00 2021-02-05 00:00:00 Telephone Rene Brody Talisha [facility] 1.2.840.114 350.1.13.10 4.2.7.2.686 [id number] [facility] 2020-12-03 00:00:00 2020-12-03 00:00:00 Telephone Justice Erwin [facility] 1.2.840.114 350.1.13.10 4.2.7.2.686 [id number] [facility] 2020-07-29 00:00:00 2020-07-29 00:00:00 Orders Only Doctor Unassigned, [place] [facility] 1.2.840.114 350.1.13.10 4.2.7.2.686 [id number] [id number] [facility] 2020-06-07 00:00:00 2020-06-07 00:00:00 Refill Rene Brody [facility] 1.2.840.114 350.1.13.10 4.2.7.2.686 [id number] [facility] 2020-03-14 00:00:00 2020-03-14 00:00:00 Orders Only Doctor Unassigned, [place] [facility] 1.2840.114 350.1.13.10 4.2.7.2.686 [id number] [id number] [facility] 2020 00:00:00 2020 00:00:00 Telephone Patricio Lucas [facility] 1.2840.114 350.1.13.10 4.2.7.2.686 [id number] [facility] 2020-02-23 00:00:00 2020-02-23 00:00:00 Orders Only Doctor Unassigned, [place] [facility] 1.2.840.114 350.1.13.10 4.2.7.2.686 [id number] [id number] [facility] 2020-02-17 00:00:00 2020-02-17 00:00:00 Telephone Aristeo [facility] 1.2840.114 350.1.13.10 4.2.7.2.686 [id number] [facility] 2020-02-13 00:00:00 2020-02-13 00:00:00 Orders Only Doctor Unassigned, [place] [facility] 1.2840.114 350.1.13.10 4.2.7.2.686 [id number] [id number] [facility] 2020-02-02 00:00:00 2020-02-02 00:00:00 Telephone PatricioLucas sanders [facility] 1.2840.114 350.1.13.10 4.2.7.2.686 [id number] [facility] 2020-01-12 00:00:00 2020-01-12 00:00:00 Telephone Rene Brody [facility] 1.284.114 350.1.13.10 4.2.7.2.686 [id number] [facility] 2019-06-10 13:33:41 2019-06-10 13:48:41 Office Visit Agustina Camargohi [facility] 1.2840.114 350.1.13.10 4.2.7.2.686 [id number] [facility] Results Test Description Test Time Test Comments Results Result Co mments Source [facility] [id number] 15:18:21* Test Item Value Reference Range Interpretation Comme nts TROPONIN I (test code = 9905443476) 0.000 ng/mL <=0.034 LUPE (test code = LUPE) Reference (Normal) Range (defined by the 99th percentile reference limit): <= 0.034 ng/mL Note: Cardiac troponin begins to rise 3-4 hours after the onset of ischemia. Repeat in 4-6 hours if the sample was drawn within 3-4 hours of the onset of the symptom and found normal. Diagnosis of myocardial injury is made with acute changes in cTn concentrations with at least one serial sample above the 99th percentile upper reference limit (URL), taken together with the patient's clinical presentation. Biotin has been reported to cause a negative bias, interpret results relative to patient's use of biotin. Lab Interpretation (test code = 39656-6) Normal [facility] NorthwestN-TERMINAL [id number] 15:16:28* Test Item Value Reference Range Interpretation Comme nts NT-proBNP (test code = 8833824846) <=125 LUPE (test code = LUPE) Biotin has been reported to cause a negative bias, interpret results relative to patient's use of biotin. Lab Interpretation (test code = 23885-1) Normal [facility] NorthwestACTIVATED PARTIAL THRMPLAS [id number] 15:10:18* Test Item Value Reference Range Interpretation Comme nts APTT Patient (test code = 3173-2) 23 See_Comment [Automated message] The system which generated this result transmitted reference range: 23 - 38 Seconds. The reference range was not used to interpret this result as normal/abnormal. LUPE (test code = LUPE) The [facility] patient population mean normal value for aPTT is 30 seconds. Lab Interpretation (test code = 39052-7) Normal [facility] NorthwestPROTHROMBIN TIME / [id number] 15:08:17* Test Item Value Reference Range Interpretation Comme nts PROTIME PATIENT (test code = 5964-2) 12.2 See_Comment [Automated messa ge] The system which generated this result transmitted reference range: 12.0 - 14.7 Seconds. The reference range was not used to interpret this result as normal/abnormal. INR (test code = 6301-6) 0.9 Normal INR <1.1; Warfarin Therapeutic range 2.0 to 3.0 or 2.5 to 3.5, depending upon the indications. Lab Interpretation (test code = 44463-9) Normal [facility] NorthwestCOMP. METABOLIC PANEL (26516)2023-05-01 15:06:36* Test Item Value Reference Range Interpretation Comme nts NA (test code = 2481700072) 137 mmol/L 135-145 K (test code = 5463169871) 5.0 mmol/L 3.5-5.0 CL (test code = 8836853527) 103 mmol/L 98-108 CO2 TOTAL (test code = 6049348948) 25 mmol/L 23-31 AGAP (test code = 3046633854) 9 2-16 BUN (test code = 0801982109) 20 mg/dL 7-23 GLUCOSE (test code = 8800919877) 101 mg/dL 70-110 CREATININE (test code = 4534559100) 0.89 mg/dL 0.60-1.25 TOTAL BILI (test code = 1550051153) 1.0 mg/dL 0.1-1.1 CALCIUM (test code = 5038517523) 9.3 mg/dL 8.6-10.6 T PROTEIN (test code = 4231159304) 7.0 g/dL 6.3-8.2 ALBUMIN (test code = 4318414150) 4.0 g/dL 3.5-5.0 ALK PHOS (test code = 8215604151) 92 U/L 34-122 ALTv (test code = 1742-6) 45 U/L 5-50 AST(SGOT) (test code = 4532676277) 29 U/L 13-40 eGFR (test code = 6096852343) 90.1 mL/min/1.73m2 LUPE (test code = LUPE) Association of Glomerular Filtration Rate (GFR) and Staging of Kidney Disease* + + +- +| GFR (mL/min/1.73 m2) ?| With Kidney Damage ?| ?Without Kidney Damage+ ------+ ----+ ------+| ?>90 ?| ?Stage one ?| ? Normal ?+ -+ + -+| ?60-89 ?| ?Stage two ?| ? Decreased GFR ? + + +- +| ?30-59 ?| ?Stage three ?| ? Stage three ? + + +- +| ?15-29 ?| ?Stage four ? | ? Stage four ?+ -+ + -+| ?<15 (or dialysis) ? ?| ?Stage five ? | ? Stage five ?+ -+ + -+ *Each stage assumes the associated GFR level has been in effect for at least three months. ?Stages 1 to 5, with or without kidney disease, indicate chronic kidney disease. Notes: Determination of stages one and two (with eGFR >59mL/min/1.73 m2) requires estimation of kidney damage for at least three months as defined by structural or functional abnormalities of the kidney, manifested by either:Pathological abnormalities or Markers of kidney damage (including abnormalities in the composition of the blood or urine or abnormalities in imaging tests). [facility] WITH [id number] 14:59:16* Test Item Value Reference Range Interpretation Comme nts WBC (test code = 6690-2) 7.98 See_Comment [Automated [employer] ge] The system which generated this result transmitted reference range: 4.20 - 10.70 10*3/?L. The reference range was not used to interpret this result as normal/abnormal. RBC (test code = 789-8) 6.23 See_Comment H [Automated [employer] ge] The system which generated this result transmitted reference range: 4.26 - 5.52 10*6/?L. The reference range was not used to interpret this result as normal/abnormal. HGB (test code = 718-7) 17.5 g/dL 12.2-16.4 H HCT (test code = 4544-3) 53.1 % 38.4-49.3 H MCV (test code = 787-2) 85.2 fL 81.7-95.6 MCH (test code = 785-6) 28.1 pg 26.1-32.7 MCHC (test code = 786-4) 33.0 g/dL 31.2-35.0 RDW-SD (test code = 16622-9) 42.9 fL 38.5-51.6 RDW-CV (test code = 788-0) 14.1 % 12.1-15.4 PLT (test code = 777-3) 231 See_Comment [Automated [employer]] The system which generated this result transmitted reference range: 150 - 328 10*3/?L. The reference range was not used to interpret this result as normal/abnormal. MPV (test code = 97767-2) 10.8 fL 9.8-13.0 NRBC/100 WBC (test code = 5875290698) 0.0 See_Comment [Automated [employer]] The system which generated this result transmitted reference range: 0.0 - 10.0 /100 WBCs. The reference range was not used to interpret this result as normal/abnormal. NRBC x10^3 (test code = 8762506530) See_Comment [Automated [employer] ge] The system which generated this result transmitted reference range: 10*3/?L. The reference range was not used to interpret this result as normal/abnormal. GRAN MAT (NEUT) % (test code = 770-8) 47.1 % IMM GRAN % (test code = 8609055773) 0.40 % LYMPH % (test code = 736-9) 39.2 % MONO % (test code = 5905-5) 8.9 % EOS % (test code = 713-8) 3.9 % BASO % (test code = 706-2) 0.5 % GRAN MAT x10^3(ANC) (test code = 5703645646) 3.76 10*3/uL 1.99-6.95 IMM GRAN x10^3 (test code = 7064734997) 0.03 10*3/uL 0.00-0.06 LYMPH x10^3 (test code = 731-0) 3.13 10*3/uL 1.09-3.23 MONO x10^3 (test code = 742-7) 0.71 10*3/uL 0.36-1.02 EOS x10^3 (test code = 711-2) 0.31 10*3/uL 0.06-0.53 BASO x10^3 (test code = 704-7) 0.04 10*3/uL 0.01-0.09 Lab Interpretation (test code = 35234-7) Abnormal [facility] NorthwestTrwilli[facility] centernin [id number] 09:39:56* Test Item Value Reference Range Interpretation Comme nts TROPONIN I (test code = 3105140561) 0.002 ng/mL <=0.034 LUPE (test code = LUPE) Reference (Normal) Range (defined by the 99th percentile reference limit): <= 0.034 ng/mL Note: Cardiac troponin begins to rise 3-4 hours after the onset of ischemia. Repeat in 4-6 hours if the sample was drawn within 3-4 hours of the onset of the symptom and found normal. Diagnosis of myocardial injury is made with acute changes in cTn concentrations with at least one serial sample above the 99th percentile upper reference limit (URL), taken together with the patient's clinical presentation. Biotin has been reported to cause a negative bias, interpret results relative to patient's use of biotin. Lab Interpretation (test code = 62314-6) Normal [facility] NorthwestN-TERMINAL [id number] 09:35:13* Test Item Value Reference Range Interpretation Comme nts NT-proBNP (test code = 2015356571) 65 pg/mL <=125 LUPE (test code = LUPE) Biotin has been reported to cause a negative bias, interpret results relative to patient's use of biotin. Lab Interpretation (test code = 72110-9) Normal [facility] Metabolic Panel (NA, K, CL, CO2, GLUCOSE, BUN, CREATININE, CA)2023-03-21 09:27:13* Test Item Value Reference Range Interpretation Comme nts NA (test code = 4972536881) 138 mmol/L 135-145 K (test code = 0188867925) 4.5 mmol/L 3.5-5.0 CL (test code = 8408866228) 103 mmol/L 98-108 CO2 TOTAL (test code = 6571094721) 24 mmol/L 23-31 AGAP (test code = 5416532212) 11 2-16 BUN (test code = 1437678224) 21 mg/dL 7-23 GLUCOSE (test code = 3948780997) 112 mg/dL 70-110 H CREATININE (test code = 8951510157) 0.83 mg/dL 0.60-1.25 CALCIUM (test code = 9375953293) 9.3 mg/dL 8.6-10.6 eGFR (test code = 1096914556) 97.7 mL/min/1.73m2 LUPE (test code = LUPE) Association of Glomerular Filtration Rate (GFR) and Staging of Kidney Disease* + --+ --+ ------+| GFR (mL/min/1.73 m2) ?| With Kidney Damage ?| ?Without Kidney Damage+ --------+ --------+ +| ?>90 ?| ?Stage one ?| ? Normal ?+ ---+ ---+ -------+| ?60-89 ?| ?Stage two ?| ? Decreased GFR ? + --+ --+ ------+| ?30-59 ?| ?Stage three ?| ? Stage three ? + --+ --+ ------+| ?15-29 ?| ?Stage four ? | ? Stage four ?+ ---+ ---+ -------+| ?<15 (or dialysis) ? ?| ?Stage five ? | ? Stage five ?+ ---+ ---+ -------+ *Each stage assumes the associated GFR level has been in effect for at least three months. ?Stages 1 to 5, with or without kidney disease, indicate chronic kidney disease. Notes: Determination of stages one and two (with eGFR >59mL/min/1.73 m2) requires estimation of kidney damage for at least three months as defined by structural or functional abnormalities of the kidney, manifested by either:Pathological abnormalities or Markers of kidney damage (including abnormalities in the composition of the blood or urine or abnormalities in imaging tests). Lab Interpretation (test code = 77356-8) Abnormal [facility] Notes Date/Time Note Provider Source Pancho Brooks [facility]2025-03-03 00:00:00 [facility] 10[facility]13:51 Referral placed, pt notified [facility]2024-12-03 09:38:45 Patient is schedule to see tomorrow 10/12 for Orthovisc INJ. Pt is required to obtain a referral from PCP. DLER [facility]University [facility] [id number] 16:55:31 [employer] send approval for Orthovisc for (1) year placed in provider box and uploaded to chart DLER [facility]Bar[facility] [id number] 15:38:08 Per Kari PRE-DETERMINATION requires for Orthovisc. Submitted form and medical support today 09/21/24. Advice Evangelina Miller to cancel patient appointment until we received approval form insurance. ARCH PHYSICIAN Sarika ChatorobynG[facility] [employer] [id number] 09:43:43 Patient has been scheduled for 08/30/24 Ana [facility]erG[facility]UP [facility] Spreadtr[employer] [id number] 17:07:16 Derek Weaver is a 54 year old male Pt is calling to schedule a procedure for bilateral knee injection please call him @[phone] (home) Shweta SrinivasanUniversity Hospitals E[facility] Center"
[2025-03-14] MEDS ORDERED: ONDANSETRON 4 MG/2 ML VIAL ONE (22:54)
[2025-03-14] MEDS ORDERED: NA CHLORIDE 0.9% 1,000 ML ONE (23:26)
[2025-03-14 23:43] LABS: Absolute Basophils 0.1 K/uL (0-0.5); Absolute Eosinophils 0.4 K/uL (0-0.5); Absolute Lymphocytes (CBC) 2.8 K/uL (0.7-4.9); Absolute Monocytes 0.7 K/uL (0.1-1.3); Absolute Neutrophil 3.7 K/uL (1.8-8.0); Basophils % 0.7 % (0-1.3); Eosinophils % 5.8 % (0-4.4); Hematocrit 49.9 % (39.6-49.0); Hemoglobin 16.7 g/dL (13.6-17.9); Lymphocytes % 36.3 % (15.3-44.8); MCHC 33.5 g/dL (32.0-36.0); MCV 83.4 fL (80-100); MPV 8.7 fL (7.6-11.3); Monocytes % 9.1 % (3.3-12.3); Neutrophils % 48.1 % (41.7-73.7); Nucleated Red Blood Cells % 0.1 % (0-0); Platelets 265 thou/uL (152-406); RBC Red Blood Cell Count 5.98 M/uL (4.33-5.43); Red Cell Distribution Width 14.3 % (12.1-15.2)
[2025-03-14 23:47] LABS: Albumin 3.1 g/dL (3.4-5.0); Albumin/Globulin Ratio 0.7 (1.1-1.8); Anion Gap 8.6 mEq/L (5.0-15.0); Bilirubin Total 0.4 mg/dL (0.2-1.0); Globulin 4.2 g/dL (2.3-3.5); Potassium 3.6 mEq/L (3.5-5.1); Protein, Total 7.3 g/dL (6.4-8.2)
[2025-03-14 23:57] LABS: Specific Gravity 1.024 (1.005-1.030); Sqamous Epithelial <5 /HPF (None Seen); Urine Bacteria None Seen /HPF (<20); Urine Bilirubin NEGATIVE (Negative); Urine Blood Negative (Negative); Urine Clarity Clear (Clear); Urine Color Light-Yellow (Yellow); Urine Glucose NEGATIVE (Negative); Urine Ketones NEGATIVE (Negative); Urine Micro Reflex YN NO BILL MICROSCOPIC; Urine Mucus Slight /HPF (None Seen); Urine Nitrite NEGATIVE (Negative); Urine Protein NEGATIVE (Negative); Urine RBC None Seen /HPF (None Seen); Urine Urobilinogen Normal (Normal); Urine WBC <5 /HPF (<5)
--- NOTE | 2025-03-15 01:44 | RAD REPORT ---
EXAM DESCRIPTION: Abdomen Pelvis W Contrast RadLex: CT ABDOMEN PELVIS WITH IV CONTRAST CLINICAL HISTORY: 55 years Male; ABD PAIN; IV ONLY Bed Name: 14 TECHNIQUE: CT of the abdomen and pelvis [with] intravenous contrast. All CT scans at this facility use dose modulation, iterative reconstruction, and/or weight based dosi ng when appropriate to reduce radiation dose to as low as reasonably achievable. COMPARISON: None. FINDINGS: Lower thorax: Bibasilar atelectasis. Abdomen: Stomach: Within normal limits Liver: No focal lesions. No intrahepatic ductal distention. Gallbladder: Nondistended Pancreas: Within normal limits Spleen: Within normal limits Right kidney: No hydronephrosis. No focal lesion. Left kidney: No hydronephrosis. Tiny 1 to 2 mm renal stone. Adrenal glands: Within normal limits Vascular structures: Within normal limits Nodes: No lymphadenopathy by size criteria Pelvis: Small bowel: No significant distention. Fluid-filled contents with mild mucosal hyperenhancement. Appendix: Within normal limits Colon: No distention or acute pericolonic edema. Peritoneum: No free intraperitoneal fluid or air. Bones: No acute bone findings. Bladder: Unremarkable. Reproductive organs: No acute findings. Soft tissues: Small fat-containing bilateral inguinal hernias. IMPRESSION: 1. Fluid-filled small bowel contents with mild mucosal hyperenhancement, can be seen in setting of enteritis. 2. Left-sided nephrolithiasis. No hydronephrosis. Electronically signed by: Alan Padilla MD 03/15/2025 01:01 AM CDT RP TYG Due to temporary technical issues with the [employer] reporting system, reports are being geraldo d by the in-house radiologist without review as a courtesy to ensure prompt reporting the interpreting radiologist is fully responsible for the content of the report. Transcribed Date/Time: 03/15/2025 1:44 AM
--- NOTE | 2025-03-15 04:17 | ER ---
Nurse's Notes [facility] Name: Magdy Weaver Age: 55 yrs Sex: Male : 1970 Arrival Date: 03/14/2025 Time: 22:24 Bed 14 Private MD: Roberta Abdi Diagnosis: Acute viral gastroenteritis Presentation: 03/14 22:44 Chief complaint: Patient states: RIGHT LOWER QUADRANT PAIN AND STOMACH BLOATING. ha1 22:44 Coronavirus screen: Client denies travel out of the [place] in the last 14 days. Ebola ha1 Screen: No symptoms or risks identified at this time. Initial Sepsis Screen: Does the patient meet any 2 criteria? No. Patient's initial sepsis screen is negative. Does the patient have a suspected source of infection? No. Patient's initial sepsis screen is negative. Risk Assessment: Do you want to hurt yourself or someone else? Patient reports no desire to harm self or others. Onset of symptoms was March 14, 2025. 22:44 Method Of Arrival: Ambulatory ha1 22:44 Acuity: MONIQUE 3 ha1 Historical: - Allergies: 22:44 Dilantin; ha1 - PMHx: 22:44 Hypertensive disorder; Seizure; ha1 - Immunization history:: Adult Immunizations up to date. - Infectious Disease History:: Denies. - Social history:: Smoking status: Patient denies any tobacco usage or history of. - Family history:: not pertinent. Screenin:05 [facility] ED Fall Risk Assessment (Adult) History of falling in the last 3 months, rg5 including since admission No falls in past 3 months (0 pts) Confusion or Disorientation No (0 pts) Intoxicated or Sedated No (0 pts) Impaired Gait No (0 pts) Mobility Assist Device Used No (0 pt) Altered Elimination No (0 pt) Score/Fall Risk Level 0 - 2 = Low Risk Oriented to surroundings, Maintained a safe environment, Hourly rounding (assess needs \T\ fall precautionary measures) done. Abuse screen: Denies threats or abuse. Nutritional screening: No deficits noted. Tuberculosis screening: No symptoms or risk factors identified. Assessment: 23:05 General: Appears in no apparent distress. comfortable, Behavior is calm, cooperative, rg5 appropriate for age. Pain: Complains of pain in right lower quadrant Quality of pain is described as aching, Pain began 2-3 days ago. Neuro: Level of Consciousness is awake, alert, obeys commands. Cardiovascular: Denies chest pain, Patient's skin is warm and dry. Respiratory: Airway is patent Trachea midline Respiratory effort is even, unlabored, Breath sounds are clear. GI: Abdomen is round obese, Bowel sounds present in left upper quadrant Abd is soft and non tender Reports lower abdominal pain, constipation, cramping. : No signs and/or symptoms were reported regarding the genitourinary system. EENT: No deficits noted. Derm: Skin is intact, Skin is dry, Skin is normal, Skin temperature is warm. Musculoskeletal: Circulation, motion, and sensation intact. Range of motion: intact in all extremities. 03/15 00:32 Reassessment: Patient and/or family updated on plan of care and expected duration. Pain rg5 level reassessed. Patient is alert, oriented x 3, equal unlabored respirations, skin warm/dry/pink. Patient states symptoms have improved. 01:39 Reassessment: No changes from previously documented assessment. Patient and/or family rg5 updated on plan of care and expected duration. Pain level reassessed. Patient is alert, oriented x 3, equal unlabored respirations, skin warm/dry/pink. 02:49 Reassessment: No changes from previously documented assessment. Patient and/or family rg5 updated on plan of care and expected duration. Pain level reassessed. Patient is alert, oriented x 3, equal unlabored respirations, skin warm/dry/pink. 03:45 Reassessment: No changes from previously documented assessment. Patient and/or family rg5 updated on plan of care and expected duration. Pain level reassessed. Patient is alert, oriented x 3, equal unlabored respirations, skin warm/dry/pink. Vital Signs: 03/14 22:44 BP 141 / 94; Pulse 109; Resp 16 S; Temp 98.4(O); Pulse Ox 96% on R/A; Weight 131.54 kg ha1 (R); Height 5 ft. 11 in. ; Pain 5/10; 23:05 BP 149 / 108; Pulse 95; Resp 17; Pulse Ox 98% on R/A; Pain 5/; rg5 03/15 00:30 BP 128 / 89; Pulse 96; Resp 18; Pulse Ox 97% ; Pain 3/10; rg5 01:13 BP 141 / 86; Pulse 95; Resp 18; Pulse Ox 96% on R/A; Pain 3/10; rg5 02:47 BP 155 / 94; Pulse 88; Resp 17; Pulse Ox 99% on R/A; Pain 0/10; rg5 03:45 BP 142 / 86; Pulse 88; Resp 18; Pulse Ox 98% on R/A; Pain 0/10; rg5 03/14 22:44 Body Mass Index 40.45 (131.54 kg, 180.34 cm) ha1 03/14 22:44 Pain Scale: Adult ha1 23:05 Pain Scale: Adult rg5 03/15 00:30 Pain Scale: Adult rg5 01:13 Pain Scale: Adult rg5 02:47 Pain Scale: Adult rg5 03:45 Pain Scale: Adult rg5 Bart Coma Score: 21:21 Eye Response: spontaneous(4). Motor Response: obeys commands(6). Verbal Response: sp4 oriented(5). Total: 15. ED Course: 03/14 22:28 Patient arrived in ED. gm2 22:29 Roberta Abdi DO is Private Physician. gm2 22:31 Orville Kee MD is Attending Physician. sp4 22:44 Herbert Otto, MARA is Primary Nurse. rg5 22:56 Triage completed. ha1 23:05 Patient has correct armband on for positive identification. Bed in low position. Call rg5 light in reach. Side rails up X 1. Door closed. Noise minimized. Warm blanket given. 23:05 No provider procedures requiring assistance completed. Inserted saline lock: 20 gauge rg5 in right antecubital area, using aseptic technique. Blood collected. Flushed with 10 mL NS. 23:10 Arm band placed on. rg5 03/15 00:16 CT Abd/Pelvis - IV Contrast Only In Process Unspecified. EDMS 04:16 Roberta Abdi DO is Referral Physician. sp4 04:56 Provided Education on: post er care. rg5 04:56 IV discontinued, bleeding controlled, No redness/swelling at site. Pressure dressing rg5 applied. Administered Medications: 03/14 23:04 Drug: Ondansetron IVP 4 mg IVP once; over 2 minutes Route: IVP; Site: right antecubital;rg5 23:36 Follow up: Response: No adverse reaction rg5 23:36 Drug: NS IV 0.45 % 1000 ml IV at 125 ml/hr continuous Route: IV; Rate: 125 ml/hr; Site: rg5 right antecubital; 03/15 04:57 Follow up: IV Status: Completed infusion; IV Intake: 1000ml rg5 Medication: 03/14 23:05 VIS not applicable for this client. rg5 Intake: 03/15 04:57 IV: 1000ml; Total: 1000ml. rg5 Outcome: 04:17 Discharge ordered by . diogenes 04:56 Discharged to home ambulatory, rg5 04:56 Condition: stable 04:56 Discharge instructions given to patient, Instructed on discharge instructions, Demonstrated understanding of instructions, follow-up care, Prescriptions given X 3, 04:57 Patient left the ED. rg5 Signatures: Dispatcher [employer] EDMS Dottie Michael RN RN ha1 Orville Kee MD MD sp4 Jesusita Shrestha 2 Herbert Otto RN RN rg5
--- NOTE | 2025-03-15 04:17 | EDPHYS ---
Physician Documentation [facility] Name: Magdy Weaver Age: 55 yrs Sex: Male : 1970 Arrival Date: 03/14/2025 Time: 22:24 Bed 14 Private MD: Roberta Abdi ED Physician Orville Kee HPI: 03/14 22:31 This 55 yrs old Male presents to ER via Unassigned with complaints of sp4 Abdominal Pain, stomach swelling. 03/15 21:21 Very pleasant 55-year-old male with history of hypertensive disorder and epilepsy sp4 presents with acute lower abdominal pain. Patient reported abdominal bloating as well. Pain has developed in the last 3 days. Historical: - Allergies: 03/14 22:44 Dilantin; ha1 - PMHx: 22:44 Hypertensive disorder; Seizure; ha1 - Immunization history:: Adult Immunizations up to date. - Infectious Disease History:: Denies. - Social history:: Smoking status: Patient denies any tobacco usage or history of. - Family history:: not pertinent. ROS: 03/15 21:21 Constitutional: Negative for fever, chills, and weight loss, positive for abdominal sp4 bloating, positive for lower abdominal pain All other systems are negative, Exam: 21:21 Constitutional: This is a well developed, well nourished patient who is awake, alert, sp4 and in no acute distress. Head/Face: Normocephalic, atraumatic. Eyes: Pupils equal round and reactive to light, extra-ocular motions intact. Lids and lashes normal. Conjunctiva and sclera are not injected. Cornea within normal limits. Periorbital areas with no swelling, redness, or edema. ENT: Nares patent. No nasal discharge, no septal abnormalities noted. Tympanic membranes are normal and external auditory canals are clear. Oropharynx with no redness, swelling, or masses, exudates, or evidence of obstruction, uvula midline. Mucous membranes moist. Neck: Trachea midline, no thyromegaly or masses palpated, and no cervical lymphadenopathy. Supple, full range of motion without nuchal rigidity, or vertebral point tenderness. Chest/axilla: Normal chest wall appearance and motion. Nontender with no deformity. No lesions are appreciated. Cardiovascular: Regular rate and rhythm with a normal S1 and S2. No gallops, murmurs, or rubs. Normal PMI, no JVD. No pulse deficits. Respiratory: Lungs have equal breath sounds bilaterally, clear to auscultation and percussion. No rales, rhonchi or wheezes noted. No increased work of breathing, no retractions or nasal flaring. Abdomen/GI: Soft, with normal bowel sounds. No distension or tympany. No guarding or rebound. No evidence of tenderness throughout. Back: No spinal tenderness. No costovertebral tenderness. Skin: Warm, dry with normal turgor. Normal color with no rashes, no lesions, and no evidence of cellulitis. MS/ Extremity: Pulses equal, no cyanosis. Neurovascular intact. Full, normal range of motion. Neuro: Awake and alert, GCS 15, oriented to person, place, time, and situation. Cranial nerves II-XII grossly intact. Motor strength 5/5 in all extremities. Sensory grossly intact. Psych: Awake, alert, with orientation to person, place and time. Behavior, mood, and affect are within normal limits Vital Signs: 03/14 22:44 BP 141 / 94; Pulse 109; Resp 16 S; Temp 98.4(O); Pulse Ox 96% on R/A; Weight 131.54 kg ha (R); Height 5 ft. 11 in. ; Pain 5/10; 23:05 BP 149 / 108; Pulse 95; Resp 17; Pulse Ox 98% on R/A; Pain 5/10; rg5 03/15 00:30 BP 128 / 89; Pulse 96; Resp 18; Pulse Ox 97% ; Pain 3/10; rg5 01:13 BP 141 / 86; Pulse 95; Resp 18; Pulse Ox 96% on R/A; Pain 3/10; rg5 02:47 BP 155 / 94; Pulse 88; Resp 17; Pulse Ox 99% on R/A; Pain 0/10; rg5 03:45 BP 142 / 86; Pulse 88; Resp 18; Pulse Ox 98% on R/A; Pain 0/10; rg5 03/14 22:44 Body Mass Index 40.45 (131.54 kg, 180.34 cm) [facility] 03/14 22:44 Pain Scale: Adult ha1 23:05 Pain Scale: Adult rg5 03/15 00:30 Pain Scale: Adult rg5 01:13 Pain Scale: Adult rg5 02:47 Pain Scale: Adult rg5 03:45 Pain Scale: Adult rg5 [place] Coma Score: 21:21 Eye Response: spontaneous(4). Motor Response: obeys commands(6). Verbal Response: sp4 oriented(5). Total: 15. MDM: 03/14 23:16 Medical Screening Exam initiated sp4 03/15 04:09 ED course: CLINICAL HISTORY: 55 years Male; ABD PAIN; IV ONLYBed Name: 14 TECHNIQUE: CT sp4 of the abdomen and pelvis [with] intravenous contrast. All CT scans at this facility use dose modulation, iterative reconstruction, and/or weight based dosing when appropriate to reduce radiation dose to as low as reasonably achievable. COMPARISON: None. FINDINGS: Lower thorax: Bibasilar atelectasis. Abdomen: Stomach:Within normal limits Liver:No focal lesions. No intrahepatic ductal distention. Gallbladder:Nondistended Pancreas:Within normal limits Spleen:Within normal limits Right kidney:No hydronephrosis. No focal lesion. Left kidney:No hydronephrosis. Tiny 1 to 2 mm renal stone. Adrenal glands:Within normal limits Vascular structures:Within normal limits Nodes:No lymphadenopathy by size criteria Pelvis: Small bowel:No significant distention. Fluid-filled contents with mild mucosal hyperenhancement. Appendix:Within normal limits Colon:No distention or acute pericolonic edema. Peritoneum: No free intraperitoneal fluid or air. Bones: No acute bone findings. Bladder: Unremarkable. Reproductive organs: No acute findings. Soft tissues: Small fat-containing bilateral inguinal hernias. IMPRESSION: 1. Fluid-filled small bowel contents with mild mucosal hyperenhancement, can be seen in setting of enteritis. 2. Left-sided nephrolithiasis. No hydronephrosis. . 21:24 Differential diagnosis: cholecystitis, Cholelithiasis, gastritis, gastroesophageal sp4 reflux disease, GI Bleed, Hepatitis, Irritable bowel syndrome. Data reviewed: vital signs, nurses notes, lab test result(s), radiologic studies, CT scan. Consideration of Admission/Observation Escalation of care including admission/observation considered. ED course: CAT scan basically reveals enteritis. And left-sided nephrolithiasis without ureteral calculus. Patient stable for discharge home. Advise clear liquid diet for 24 hours.. 03/14 22:32 Order name: CBC with Diff; Complete Time: 04:08 sp4 03/14 22:32 Order name: CMP; Complete Time: 04:08 sp4 03/14 22:32 Order name: Lipase; Complete Time: 04:08 sp4 03/14 22:33 Order name: UA W/ Microscopic; Complete Time: 04:08 sp4 03/14 22:57 Order name: CT Abd/Pelvis - IV Contrast Only; Complete Time: 04:08 sp4 03/14 22:32 Order name: IV Saline Lock; Complete Time: 23:05 sp4 03/14 22:32 Order name: Labs collected and sent; Complete Time: 23:05 sp4 Administered Medications: 03/14 23:04 Drug: Ondansetron IVP 4 mg IVP once; over 2 minutes Route: IVP; Site: right antecubital;rg5 23:36 Follow up: Response: No adverse reaction rg5 23:36 Drug: NS IV 0.45 % 1000 ml IV at 125 ml/hr continuous Route: IV; Rate: 125 ml/hr; Site: rg5 right antecubital; 03/15 04:57 Follow up: IV Status: Completed infusion; IV Intake: 1000ml rg5 Disposition Summary: 03/15/25 04:17 Discharge Ordered Notes: we recommend clear liquid diet for 24 hours Location: Home sp4 Problem: new sp4 Symptoms: have improved sp4 Condition: Stable sp4 Diagnosis - Acute viral gastroenteritis sp4 Followup: sp4 - With: Roberta Abdi DO - When: 7 - 10 days - Reason: Recheck today's complaints Discharge Instructions: - Discharge Summary Sheet sp4 - Viral Gastroenteritis, Adult, [id number] sp4 - Clear Liquid Diet, Adult, Umas-[id number] sp4 Forms: - Patient Portal Instructions sp4 Prescriptions: - Ibuprofen 800 mg Oral Tablet - take 1 tablet ORAL route every 8 hours As needed take with food; 30 tablet; sp4 Refills: 0, Product Selection Permitted - Lomotil 2.5-0.025 mg Oral tablet - take 1 tablet ORAL route every 6 hours As needed PRN diarrrhea; 30 tablet; sp4 Refills: 0, Product Selection Permitted - ondansetron 8 mg Oral Tablet,disintegrating - take 1 tablet ORAL route every 8 hours PRN nausea; 30 tablet; Refills: 0, sp4 Product Selection Permitted Signatures: Dispatcher [employer] EDMS Dottie Michael RN RN ha1 Orville Kee MD MD sp4 Herbert Otto RN RN rg5 Corrections: (The following items were deleted from the chart) 03/14 22:33 22:33 CBC+H.LAB.BRZ ordered. EDMS EDMS 22:33 22:33 COMPREHENSIVE METABOLIC PANEL+C.LAB.BRZ ordered. EDMS EDMS 22:33 22:33 LIPASE+C.LAB.BRZ ordered. EDMS EDMS
[2025-03-15 12:24] VITALS: TEMP 98.4
[2025-03-15 12:33] VITALS: BP 142/86; O2SAT 98
== END 2025-03-15 04:57 | disposition home or self-care (01) ==
LOC: ER 22:24
DX: A08.4 Viral intestinal infection, unspecified (principal)
CPT/HCPCS: 85025; 81001; 36415; 83690; 80053; 74177; Q9967; J2405; J7030